=== PATIENT | female | born 1975 | race African-American/Black ===

== ENCOUNTER 2016-10-12 16:49 | Emergency (ER) | payer BC, OTHER ==
[~2016-10-12] VITALS: Ht 165.1 cm; Wt 86.2 kg
--- NOTE | ~2016-10-12 | EKG ---
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
[2016-10-12 17:17] LABS: BASOPHILS 1.2 % (0.0-2.0); EOSINOPHILS 1.1 % (0.0-3.0); HEMATOCRIT 35.4 % (37.0-47.0); HEMOGLOBIN 11.9 gm/dL (12.0-15.0); LYMPHOCYTES 34.7 % (24.0-44.0); MCH 27.1 pg (26.0-34.0); MCHC 33.6 g/dL (28.0-37.0); MCV 80.5 fL (80.0-100.0); PLATELET COUNT 386 thou/uL (150-400); RDW 13.6 % (10.5-14.5); WBC 9.2 thou/uL (4.0-11.0)
[2016-10-12] MEDS ORDERED: [UNRECOGNIZED DRUG - CODE] TOP (17:18)
[2016-10-12 17:21] LABS: MANUAL DIFF NO
[2016-10-12 17:27] LABS: CALCIUM 9.2 mg/dL (8.5-10.1); CREATININE 0.6 mg/dL (0.6-1.0); POTASSIUM 3.5 mmol/L (3.5-5.1)
[2016-10-12] MEDS ORDERED: HYDROXYZINE HCL25 M1 PO (17:36)
[2016-10-12 17:48] VITALS: BP 129/83
== END 2016-10-12 17:49 | disposition home or self-care (01) ==
LOC: ER 16:49
PROVIDERS: Physician Assistant
DX: F41.9 Anxiety disorder, unspecified (principal); F17.210 Nicotine dependence, cigarettes, uncomplicated; Z88.5 Allergy status to narcotic agent

== ENCOUNTER 2017-02-22 13:00 | Emergency (ER) | payer BC, OTHER ==
[~2017-02-22] VITALS: Ht 165.1 cm; Wt 86.2 kg
--- NOTE | ~2017-02-22 | EKG ---
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
[~2017-02-22 13:00] MED LIST: HYDROXYZINE HCL25 M1 PO; [UNRECOGNIZED DRUG - CODE] TOP
[2017-02-22 14:39] LABS: ABSOLUTE NEUTROPHILS 7.2 thou/uL (1.4-8.2); BASOPHILS 0.9 % (0.0-2.0); EOSINOPHILS 0.5 % (0.0-3.0); HEMATOCRIT 34.5 % (37.0-47.0); HEMOGLOBIN 11.4 gm/dL (12.0-15.0); LYMPHOCYTES 16.8 % (24.0-44.0); MCH 27.2 pg (26.0-34.0); MCHC 33.1 g/dL (28.0-37.0); MONOCYTES 7.3 % (1.0-8.0); PLATELET COUNT 352 thou/uL (150-400); POLYS 74.5 % (36.0-66.0); RBC 4.21 mil/uL (4.20-5.00); RDW 13.5 % (10.5-14.5); WBC 9.7 thou/uL (4.0-11.0)
[2017-02-22 14:52] LABS: MANUAL DIFF NO
[2017-02-22 15:02] LABS: APTT 27.8 Seconds (24.5-32.8); PROTIME 9.6 Seconds (9.3-11.4)
[2017-02-22 15:05] LABS: ANION GAP 9 mmol/L (7-16); BUN 8 mg/dL (7-18); CALCIUM 9.1 mg/dL (8.5-10.1); CHLORIDE 104 mmol/L (98-107); CO2 27 mmol/L (21-32); CREATININE 0.5 mg/dL (0.6-1.0); GLUCOSE 87 mg/dL (74-106); POTASSIUM 3.9 mmol/L (3.5-5.1); SODIUM 140 mmol/L (136-145)
[2017-02-22 15:12] LABS: ALBUMIN 3.6 g/dL (3.4-5.0); ALKALINE PHOSPHATASE 170 U/L (46-116); MAGNESIUM 1.8 mg/dL (1.8-2.4); SGOT 32 U/L (15-37); SGPT 63 U/L (30-65); TOTAL BILIRUBIN 0.2 mg/dL (<0.1-1.0); TROPONIN-I < 0.04 ng/mL (<0.04-0.07)
[2017-02-22] MEDS ORDERED: PREDNISONE 20 M20 MG PO (15:26)
[2017-02-22 15:38] VITALS: BP 123/80
== END 2017-02-22 15:40 | disposition home or self-care (01) ==
LOC: ER 13:00
PROVIDERS: Emergency Medicine
DX: F41.0 Panic disorder [episodic paroxysmal anxiety] (principal); M43.6 Torticollis; F17.210 Nicotine dependence, cigarettes, uncomplicated; F10.99 Alcohol use, unspecified with unspecified alcohol-induced disorder; Z88.5 Allergy status to narcotic agent